=== PATIENT | female | born 1985 | race Asian ===

== ENCOUNTER → 2016-12-19 | Outpatient (CLI) | payer OTHER | END | disposition home or self-care (01) | LOC: LB 15:51 | DX: E03.9 Hypothyroidism, unspecified (principal) ==

== ENCOUNTER → 2017-01-10 | Outpatient (CLI) | payer OTHER ==
[2017-01-10 09:24] LABS: BASOPHIL % 0.6 % (0-2); PLATELET COUNT 246 x10^3mcL (130-400)
[2017-01-10 09:56] LABS: ALBUMIN 3.8 g/dL (3.4-5.0); ALKALINE PHOSPHATASE 74 U/L (46-116); ALT/SGPT 16 U/L (14-59); AST/SGOT 14 U/L (15-37); CALCIUM 8.6 mg/dL (8.5-10.1); CARBON DIOXIDE 25.7 mmol/L (21-32); CHLORIDE SERUM 107 mmol/L (98-107); CREATININE SERUM 0.7 mg/dL (0.6-1.0); FREE T4 1.45 ng/dL (0.76-1.46); GFR1 > 60 mL/min; GLUCOSE SERUM 94 mg/dL (74-106); HDL CHOLESTEROL 58 mg/dL (40-60); POTASSIUM SERUM 3.8 mmol/L (3.5-5.1); SODIUM SERUM 142 mmol/L (136-145); TOTAL PROTEIN, SERUM 7.9 g/dL (6.4-8.2); TRIGLYCERIDES 97 mg/dL (<150)
[2017-01-10 09:57] LABS: CHOLESTEROL 127 mg/dL (<200); CHOLESTEROL/HDL RATIO 2.2
== END | disposition home or self-care (01) ==
LOC: MI 08:56
PROVIDERS: Family Medicine
PROC: BP39ZZZ Magnetic Resonance Imaging (MRI) of Left Shoulder (ICD-10-PCS; principal; 2017-01-10)
DX: M25.512 Pain in left shoulder (principal)
CPT/HCPCS: 84439

== ENCOUNTER 2017-03-16 11:45 | Emergency (ER) | payer OTHER ==
[2017-03-16 12:56] VITALS: BP 108/67
== END 2017-03-16 12:56 | disposition home or self-care (01) ==
LOC: ED 11:45
DX: H60.502 Unspecified acute noninfective otitis externa, left ear (principal)